=== PATIENT | male | born 1955 | race Caucasian/White ===

== ENCOUNTER 2020-08-12 10:35 | Emergency (ER) | payer BC ==
[~2020-08-12] VITALS: Ht 170.2 cm; Wt 68.2 kg
--- NOTE | 2020-08-12 10:50 | PHYS DOC ---
Past History Past Medical History: Hypertension Adult General Chief Complaint Chief Complaint: CHEST PAIN HPI HPI Patient is a pleasant 65-year-old male presenting for chest pain. Reports this is a acute on chronic problem. He has been having episodes of substernal chest tightness that does not radiate that is been coming and going for the past 1 to 2 weeks. Physical exertion seems to make worse, rest makes better. Describes pain as substernal pressure with minimal radiation. Reports symptoms take his breath away during acute episodes and typically self resolve without any intervention in less than 5 minutes. Went to work this morning and suffered an episode that lasted approximately 5 to 10 minutes and has improved when being seen now in the ER but this concerned him prompting transport to our ER for evaluation. Denies fever, chills, syncope, vision changes, hemoptysis, abdominal pain, dysuria, history of blood clots or heart attack. Only medical diagnosis is hypertension for which he takes metoprolol XL. He takes his blood pressure daily and reports readings of 140s to 170s systolic over the past 1 to 2 weeks. He called his primary care physician yesterday but PCP is out of town. Patient also discloses that he had Covid within past 12 months, states he has never really been the same since then with continued weakness and overall fatigue. He is concern for potential pneumonia and/or blood clot as sequelae of COVID-19 infection Review of Systems Review of Systems Fourteen body systems of review of systems have been reviewed. See HPI for pertinent positives and negative responses, other grimm all other systems are negative, non-pertinent or non-contributory Physical Exam Physical Exam Constitutional: Well developed, well nourished, no acute distress, non-toxic appearance. HENT: Normocephalic, atraumatic, bilateral external ears normal, oropharynx moist, no oral exudates, nose normal. Eyes: PERRLA, EOMI, conjunctiva normal, no discharge. Neck: Normal range of motion, no tenderness, supple, no stridor. Cardiovascular: Heart rate regular, sinus rhythm, no murmurs rubs or gallops Lungs & Thorax: Bilateral breath sounds clear to auscultation Abdomen: Bowel sounds normal, soft, no tenderness, no masses, no pulsatile masses. Nonsurgical abdomen, no peritoneal signs Skin: Warm, dry, no erythema, no rash. Back: No tenderness, no CVA tenderness. Extremities: No tenderness, no cyanosis, no clubbing, ROM intact, no edema. Neurologic: Alert and oriented X 3, grossly normal motor & sensory function, no focal deficits noted. Psychologic: Affect normal, judgement normal, mood normal. Current Patient Data Vital Signs Vital Signs Date Time Temp Pulse Resp B/P (MAP) Pulse Ox O2 Delivery O2 Flow Rate FiO2 08/12/20 11:06 75 18 153/91 (111) 98 Lab Results Laboratory Tests Test 08/12/20 11:00 White Blood Count 6.7 x10^3/uL Red Blood Count 4.32 x10^6/uL Hemoglobin 14.7 g/dL Hematocrit 42.4 % Mean Corpuscular Volume 98 fL Mean Corpuscular Hemoglobin 34 pg Mean Corpuscular Hemoglobin Concent 35 g/dL Red Cell Distribution Width 12.6 % Platelet Count 124 x10^3/uL Neutrophils (%) (Auto) 63 % Lymphocytes (%) (Auto) 28 % Monocytes (%) (Auto) 8 % Eosinophils (%) (Auto) 1 % Basophils (%) (Auto) 0 % Neutrophils # (Auto) 4.2 x10^3uL Lymphocytes # (Auto) 1.9 x10^3/uL Monocytes # (Auto) 0.5 x10^3/uL Eosinophils # (Auto) 0.0 x10^3/uL Basophils # (Auto) 0.0 x10^3/uL D-Dimer (Juliette) 0.56 mg/L Sodium Level 142 mmol/L Potassium Level 3.8 mmol/L Chloride Level 105 mmol/L Carbon Dioxide Level 29 mmol/L Anion Gap 8 Blood Urea Nitrogen 12 mg/dL Creatinine 0.7 mg/dL Estimated GFR (Cockcroft-Gault) 113.2 Glucose Level 111 mg/dL Calcium Level 8.8 mg/dL Troponin I Quantitative < 0.017 ng/mL Current Medications Medications (Trade) Dose Ordered Sig/Boubacar Route PRN Reason Start Time Stop Time Status Last Admin Dose Admin Aspirin (Aspirin Chewable) 324 mg 1X ONCE PO 08/12/20 11:00 08/12/20 11:12 DC 08/12/20 11:56 EKG EKG EKG ordered and interpreted by myself at 1114 hrs. as sinus rhythm at 76 bpm, unremarkable intervals, no axis deviation, no acute ischemic findings, no STEMI Radiology/Procedures Radiology/Procedures PROCEDURE: PORTABLE CHEST 1V XR CHEST 1V INDICATION: CHEST PAIN COMPARISON STUDY: None. FINDINGS: Lungs: Normal lung volume. No pulmonary mass or consolidation. The tr acheobronchial tree and hilar structures are normal. Pleura: No pleural effusion or pneumothorax. Heart and Mediastinum: The cardiomediastinal silhouette is normal. The great vessels of the thorax are normal. IMPRESSION: No acute cardiopulmonary process. Electronically signed by: Tong Maharaj MD (08/12/2020 11:09 AM) [id number] Heart Score C/O Chest Pain: Yes HEART Score for Chest Pain: HEART Score for Chest Pain Response (Comments) Value History Moderately Suspicious 1 ECG Normal 0 Age >45 - < 65 1 Risk Factors 1 or 2 Risk Factors 1 Troponin < Normal Limit 0 Total 3 Risk Factors: Risk Factors: DM, Current or recent (<one month) smoker, HTN, HLP, family history of CAD, obesity. Risk Scores: Risk Factors: DM, Current or recent (<one month) smoker, HTN, HLP, family history of CAD, obesity. Course & Med Decision Making Course & Med Decision Making Hypertensive patient who was otherwise hemodynamically patient with history concerning for elevated blood pressure versus other source of chest pain. Physical exam nonconcerning 162 mg aspirin provided, subsequent diagnostic work-up ensued. This was grossly negative with negative EKG, troponin and age-adjusted D-dimer Patient asymptomatic after repeat evaluations by myself and other healthcare providers. Daughter at bedside and HPI discussed. I discussed utilization of cardiac observation and recommended this, they declined They report having good access to PCP and can be seen this upcoming week. P atient plans to keep dedicated blood pressure log for review. Has never had provocative cardiac testing and would rather have this set up in outpatient setting as the services are not available during the weekend at the hospital I did disclose this might be an acute presentation more concerning pathology and so, strict return precautions were discussed at length with good understanding by patient and daughter. All questions and concerns addressed prior to ER departure. Patient to remain off work and avoid extremely physical activity until seen by PCP in outpatient setting for follow-up this upcoming week Dragon Disclaimer Dragon Disclaimer This electronic medical record was generated, in whole or in part, using a voice recognition dictation system. Departure Departure: Impression: Primary Impression: Chest pain, unspecified Additional Impression: Hypertension Disposition: 01 DC HOME SELF CARE/HOMELESS Condition: STABLE Referrals: PCP,UNKNOWN (PCP) Patient Instructions: Chest Pain (Nonspecific), Hypertension Additional Instructions: You were seen for hypertension. Your physical exam was reassuring. Your labs and imaging here were unremarkable. Your blood pressure came down here. You need to follow up with your primary care physician for further evaluation and treatment of your blood pressure. You should return to the ED if you develop chest pain, shortness of breath, severe headache, or any other new or concerning symptoms. Check your blood pressures over the next few days after you take your medications but before any caffeine and keep track of these. Call your primary care physician on the next business day and follow up in the clinic with these results as they may need to adjust your medications. Again, if any new or worsening symptoms, please return to the ED or seek evaluation by a healthcare professional. Problem Qualifiers DEANNA COYNE DO Aug 12, 2020 10:50
[2020-08-12] MEDS ORDERED: ASPIRIN CHEWABLE 81 MG TABLET. PO ONE (11:00)
[2020-08-12 11:06] VITALS: BP 153/91
--- NOTE | 2020-08-12 11:11 | RAD ---
XR CHEST 1V INDICATION: CHEST PAIN COMPARISON STUDY: None. FINDINGS: Lungs: Normal lung volume. No pulmonary mass or consolidation. The tracheobronchial tree and hilar st ructures are normal. Pleura: No pleural effusion or pneumothorax. Heart and Mediastinum: The cardiomediastinal silhouette is normal. The great vessels of the thorax ar e normal. IMPRESSION: No acute cardiopulmonary process. Electronically signed by: Tong Maharaj MD (08/12/2020 11:09 AM) [id number]
[2020-08-12 11:16] LABS: BASO % 0 % (0-3); EOS % 1 % (0-3); HEMATOCRIT 42.4 % (39.0-53.0); HEMOGLOBIN 14.7 g/dL (13.0-17.5); LYMPH # 1.9 x10^3/uL (1.0-4.8); LYMPH % 28 % (24-48); MEAN CORPUSCULAR HEMOGLOBIN 34 pg (25-35); MEAN CORPUSCULAR HGB CONC 35 g/dL (31-37); MEAN CORPUSCULAR VOLUME 98 fL (79-100); MONO # 0.5 x10^3/uL (0.0-1.1); MONO % 8 % (0-9); NEUT # 4.2 x10^3uL (1.8-7.7); NEUT % 63 % (31-73); PLATELET COUNT 124 x10^3/uL (140-400); RED BLOOD COUNT 4.32 x10^6/uL (4.30-5.70); RED CELL DISTRIBUTION WIDTH 12.6 % (11.5-14.5); WHITE BLOOD COUNT 6.7 x10^3/uL (4.0-11.0)
[2020-08-12 11:29] LABS: CALCIUM 8.8 mg/dL (8.5-10.1); CREATININE 0.7 mg/dL (0.7-1.3); GFR 113.2; POTASSIUM 3.8 mmol/L (3.5-5.1)
--- NOTE | 2020-08-12 12:10 | EKG ---
[address] [address] Test Date: 2020-08-12 Test Time: 11:08:06 Pat Name: NEFTALI FIGUEROA Department: Room: Gender: M It Administrator: REYNA : 1955 Requested By: DEANNA COYNE Order Number: [id number] Reading MD: Measurements Intervals [place] Rate: 76 P: 57 ND: 158 QRS: 23 QRSD: 72 T: 42 QT: 354 QTc: 402 Interpretive Statements SINUS RHYTHM OTHERWISE NORMAL ECG RI6.02 No previous ECG available for comparison
== END 2020-08-12 12:27 | disposition home or self-care (01) ==
LOC: ER 10:35
DX: I10 Essential (primary) hypertension (principal); R07.2 Precordial pain
CPT/HCPCS: 36415; 71045; 80048; 84484; 85025; 85379; 93005; 99285